=== PATIENT | female | born 1965 | race Caucasian/White ===

== ENCOUNTER 2017-03-10 14:38 | Emergency (ER) | payer OTHER ==
--- NOTE | ~2017-03-10 | CT71 ---
[facility] A Service of [facility] RADIOLOGY TEXT RESULTS PATIENT: HAM GUIDRY LOCATION: [place] : 67 UNIT #: [id number] AGE: [address]: Axel Lombardi MD SEX: F ORDER DR: [id number] [facility] [address] [place], [place] [address] [id number] E MR#: [id number] Acc #: [id number] NAME: HAM GUIDRY. : 1965 SEX: F STUDY DATE/TIME: 03/10/2017 15:39 UNIT: [facility] ROOM: STUDY DESCRIPTION: CT Head Wo Contrast Attending Physician: Axel Lombardi M.D. Ordering Physician: Axel Lombardi M.D. Primary Care Physician: No Primary Care Physician MEDICAL IMAGING REPORT This report is preliminary unless electronic signature is present EXAM CT brain without contrast media 03/10/2017 COMPARISON 10/24/2015 HISTORY Headache breathing problems for 2 weeks, confusion for 2 days. TECHNIQUE Axial imaging of the brain was performed and compared to the patient's study of October 24, 2015. This CT exam was performed with one or more of the following radiation dose reduction techniques: automatic control, adjustment of mA and/or kV according to patient size, and iterative reconstruction. FINDINGS Ventricular size and configuration is normal. No intra or extraaxial mass lesions, fluid collections or mass effect are seen. No focal areas of low attenuation or evidence of acute intracranial hemorrhage. Bone windows are reviewed and appear normal. CONCLUSION Normal noncontrast CT of the brain. Dictated by... Lloyd García M.D. THIS IS AN ELECTRONICALLY VERIFIED REPORT Lloyd García M.D. at 03/11/2017 7:10 AM LORENZO/jacy [facility] A Service [facility] RADIOLOGY TEXT RESULTS PATIENT: HAM GUIDRY LOCATION: [place] : 67 UNIT #: [id number] AGE: [address]: Axel Lombardi MD SEX: F ORDER DR: TD: 03/10/2017 17:20 JOB #: [id number] MEDICAL IMAGING REPORT Page 1 of 1 COPY
--- NOTE | ~2017-03-10 | CR72 ---
[facility] A Service of [facility] RADIOLOGY TEXT RESULTS PATIENT: HAM GUIDRY LOCATION: [facility] : 67 UNIT #: [id number] AGE: [address]: Axel Lombardi MD SEX: F ORDER DR: [id number] [facility] [address] [place], [place] [address] [id number] E MR#: [id number] Acc #: [id number] NAME: HAM GUIDRY. : 1965 SEX: F STUDY DATE/TIME: 03/10/2017 14:05 UNIT: [facility] ROOM: STUDY DESCRIPTION: CR Chest Single View Portable Attending Physician: Axel Lombardi M.D. Ordering Physician: Axel Lombardi M.D. Primary Care Physician: Primary Care Physician No MEDICAL IMAGING REPORT This report is preliminary unless electronic signature is present EXAM Portable chest HISTORY Cough with shortness of breath and headache. Uncertain duration of symptoms. FINDINGS A single AP portable view of the chest shows both lungs to be clear. The heart is normal in size. The mediastinal contour is normal. No significant bone abnormalities are seen. IMPRESSION Normal portable chest. Dictated by... Sung Anderson M.D. THIS IS AN ELECTRONICALLY VERIFIED REPORT Sung Anderson M.D. at 03/10/2017 10:21 PM RLF/lisa TD: 03/10/2017 15:52 JOB #: [id number] MEDICAL IMAGING REPORT Page 1 of 1 COPY
--- NOTE | ~2017-03-10 | EKG ---
PATIENT: HAM GUIDRY UNIT #: [id number] Ventricular Rate: 86 BPM Atrial Rate: 86 BPM P-R Interval: 116 ms QRS Duration: 90 ms Q-T Interval: 392 ms QTC Calculation(Bezet): 469 ms P [place]: 65 degrees Calculated R [place]: 58 degrees Calculated T [place]: 73 degrees Diagnosis Line: Normal sinus rhythm Diagnosis Line: Minimal voltage criteria for LVH, may be normal Diagnosis Line: variant Diagnosis Line: Borderline ECG Diagnosis Line: When compared with ECG of 05-APR-2016 01:04, Diagnosis Line: No significant change was found Diagnosis Line: Confirmed by LUIZA MORGAN MD ([id number]) on Diagnosis Line: 03/11/2017 11:06:29 PM INTERPRETING MD: [email or web address]
[2017-03-10 14:04] LABS: BASOPHIL# 0.1 X10e3 (0-0.3); BASOPHIL% 1.1 % (0-2.5); EOSINOPHIL# 0.1 X10e3 (0-0.7); EOSINOPHIL% 1.3 % (0.0-7.0); HEMATOCRIT 44.4 % (35.0-45.0); HEMOGLOBIN 14.8 gm/dL (12.0-16.0); LYMPHOCYTE# 1.6 X10e3 (1.0-3.5); LYMPHOCYTE% 26.3 % (17.0-45.0); MEAN CELL VOLUME 92.2 FL (83-96); MEAN CORPUSCULAR HEMOGLOBIN 30.8 PG (28-34); MEAN CORPUSCULAR HGB CONC 33.4 g/dL (30-36); MEAN PLATELET VOLUME 8.3 FL (6.5-11.5); MONOCYTE# 0.5 X10e3 (0-1.0); MONOCYTE% 7.7 % (3.0-12.0); NEUTROPHIL# 3.8 X10e3 (1.5-7.1); NEUTROPHIL% 63.6 % (40-75); PLATELET COUNT 132 X10e3 (140-420); RED BLOOD COUNT 4.81 X10e (3.90-5.30); RED CELL DISTRIBUTION WIDTH 12.8 % (11.0-15.5)
[2017-03-10 14:07] LABS: DIFF IND NO
[2017-03-10 14:18] LABS: POC - CKMB 1.4 ng/mL (0.0-7.9); POC - TROPONIN <0.05 ng/mL (<=0.05)
[~2017-03-10 14:38] MED LIST: ALBUTEROL17 GM; ALBUTEROL17 GM INH; AZITHROMYCIN250 MG PO; AZOR 10/40 MG T1 TAB PO; AZOR 5-20 MG T1 EACH; AZOR 5-20 MG T1 EACH PO; BACTRIM DS TABL1 TA1 PO; DESYREL50 MG PO; DICLOFENAC PO; EC-NAPROSYN500 MG PO; FLEXERIL PO; FLONASE16 GM; GABAPENTIN800 MG PO; HYDROCHLOROTHIA25 MG PO; IBUPROFEN800 MG PO; KETOPROFEN PO; LISINOPRIL10 MG PO; LORTAB 5/500 TA1 TA2 PO; LORTAB 7.5-5001 TAB PO; MEDROL PO; MEDROL4 MG/DOSE- PO; METFORMIN HCL500 M1 PO; METRONIDAZOLE PO; NICOTINE TRANSD21 MG; NO MEDICATIONS; NORCO 5/325 TAB1 TAB PO; NORCO 7.5-3251 EACH PO; NORVASC PO; PAXIL; PAXIL PO; PAXIL10 MG PO; PERCOCET PO; PHENERGAN PO; PREDNISONE10 MG/DOSE; PREDNISONE10 MG/DOSE PO; PRILOSEC20 MG; RISPERDAL2 MG PO; VIBRAMYCIN100 M1 DOB; VIBRAMYCIN100 M1 PO; VICODIN 5/1 TAB 5/50 PO; VICODIN 5/500 T1 TAB PO; VICODIN PO; VOLTAREN75 MG PO; XANAX1 MG PO; ZANTAC150 M1 PO; ZITHROMAX PO; ZOFRAN ODT4 MG PO
[2017-03-10 14:56] LABS: ALKALINE PHOSPHATASE 110 U/L (32-92); ALT (SGPT) 74 U/L (10-40); AST (SGOT) 77 U/L (10-42); BILIRUBIN, DIRECT 0.2 mg/dL (0.0-0.2); BILIRUBIN,INDIRECT 0.4 mg/dL (0.0-0.9); BILIRUBIN,TOTAL 0.6 mg/dL (0.2-2.0); BLOOD UREA NITROGEN 12 mg/dL (9-23); CALCIUM SERUM 9.2 mg/dL (8.4-10.2); CARBON DIOXIDE 27 mmol/L (22-31); CHLORIDE 104 mmol/L (100-111); CREATININE SERUM 0.6 mg/dL (0.6-1.4); GLOM FILT RATE Estimated 106.3 mL/min (>60); GLUCOSE FASTING 157 mg/dL (70-110); MAGNESIUM 1.8 mg/dL (1.6-3.0); POTASSIUM 3.4 mmol/L (3.5-5.1); SODIUM 138 mmol/L (135-145)
[2017-03-10 14:57] LABS: ALCOHOL BLOOD <5 mg/dL ([, 0])
[2017-03-10 16:18] LABS: AMPHETAMINE POS (NEG); BARBITURATES NEG (NEG); BENZODIAZEPINES NEG (NEG); COCAINE NEG (NEG); MARIJUANA NEG (NEG); OPIATES NEG (NEG); TRICYCLIC ANTIDEPRESSANTS NEG (NEG); U METHADONE NEG (NEG)
== END 2017-03-10 17:00 | disposition home or self-care (01) ==
LOC: CED 14:38
PROVIDERS: Emergency Medicine
DX: F15.20 Other stimulant dependence, uncomplicated (principal); I10 Essential (primary) hypertension; E11.9 Type 2 diabetes mellitus without complications; F17.200 Nicotine dependence, unspecified, uncomplicated; F20.9 Schizophrenia, unspecified; Z90.49 Acquired absence of other specified parts of digestive tract; Z88.0 Allergy status to penicillin; R51 Headache; R06.02 Shortness of breath; Z79.899 Other long term (current) drug therapy
CPT/HCPCS: 36415; 70450; 71010; 80048; 80076; 80307; 82553; 82947; 83735; 84484; 84703; 85025; 93005; 94640; 96361; 96374; 99284; G0480; J1200